=== PATIENT | female | born 1955 | race Caucasian/White ===

== ENCOUNTER 2016-11-12 16:43 | Emergency (ER) | payer MEDICARE, MEDICAID ==
[2016-11-12 17:36] VITALS: BP 142/84
--- NOTE | 2016-11-12 18:11 | EDM.PDOC ---
[id number] Complaint: ITCHING/REDNESS LEFT FOOT TOES Time Seen by Provider: 11/12/16 18:00 Source of Information: Reports: Patient History Limitations: Reports: No Limitations - History of Present Illness INITIAL COMMENTS - FREE TEXT/NARRATIVE: 61-year-old female with a reddened swollen left distal foot around the toes with a few small blisters. It developed rapidly over the course of 12 hours and is extremely itchy. No fever or chills, no red streaks. Onset: Sudden (Over the past 2 days) Location: Reports: Lower Extremity, Left Severity: Mild Associated Symptoms: Reports: No Other Symptoms left toes Pain Score (Numeric/FACES): 2 - Related Data Allergies Allergy/AdvReac Type Severity Reaction Status Date / Time clindamycin Allergy Rash Verified 11/12/16 17:24 codeine Allergy Rash Verified 11/12/16 17:24 fentanyl Allergy Itching Verified 11/12/16 17:24 hydrocodone Allergy Itching Verified 11/12/16 17:24 hydromorphone Allergy Rash Verified 11/12/16 17:24 levonorgestrel Allergy Itching Verified 11/12/16 17:24 methadone Allergy Itching Verified 11/12/16 17:24 morphine Allergy Itching Verified 11/12/16 17:24 oxycodone Allergy Itching Verified 11/12/16 17:24 tramadol HCl [From Ultram] Allergy Itching Verified 11/12/16 17:24 Home Meds: Home Meds DULoxetine HCl [Cymbalta] 120 mg PO DAILY 05/26/14 [History] Simvastatin [Zocor] 40 mg PO BEDTIME 05/26/14 [History] Cholecalciferol (Vitamin D3) [Vitamin D3] 2,000 units PO DAILY 07/09/14 [History ] Cyclobenzaprine [Flexeril] 10 mg PO TID PRN 11/12/16 [History] Past Medical History Cardiovascular History: Reports: High Cholesterol, Other (See Below) Other Cardiovascular History: mitral valve prolapse Respiratory History: Reports: COPD Gastrointestinal History: Reports: Colon Polyp, Hiatal Hernia, Irritable Bowel Syndrome Musculoskeletal History: Reports: Back Pain, Chronic, Fibromyalgia Neurological History: Reports: Headaches, Chronic Psychiatric History: Reports: Anxiety, Depression, Panic Attack - Infectious Disease History Infectious Disease History: Reports: Chicken Pox, Measles, Mumps - Past Surgical History HEENT Surgical History: Reports: Oral Surgery, Tonsillectomy Cardiovascular Surgical History: Reports: None Respiratory Surgical History: Reports: None GI Surgical History: Reports: Appendectomy, Cholecystectomy, Colonoscopy, Hernia , Inguinal, Kristin Fundoplication, Polypectomy Female Surgical History: Reports: Section, D&C, Hysterectomy Musculoskeletal Surgical History: Reports: Carpal Tunnel Social & Family History - Tobacco Use Smoking Status *Q: Current Every Day Smoker Years of Tobacco use: 40 Packs/Tins Daily: 1 Used Tobacco, but Quit: No Second Hand Smoke Exposure: No - Alcohol Use Days Per Week of Alcohol Use: 7 Number of Drinks Per Day: 1 Total Drinks Per Week: 7 - Recreational Drug Use Recreational Drug Use: No Review of Systems - Review of Systems Review Of Systems: See Below Constitutional: Denies: Fever Respiratory: Reports: No Symptoms Cardiovascular: Reports: No Symptoms Genitourinary: Reports: No Symptoms Musculoskeletal: Reports: No Symptoms Skin: Reports: Erythema, Other (Tiny blisters on several toes) Psychiatric: Reports: No Symptoms Trauma Exam - Physical Exam Exam: See Below Exam Limited By: No Limitations General Appearance: Reports: Alert, No Apparent Distress Respiratory Exam: Reports: No Respiratory Distress Extremities: Other (Exam is otherwise limited to the feet. She has erythema, slight edema and a few superficial blisters formed over the toes of the left foot. A small amount of onychomycosis is present. The right foot has no inflammatory change.) Course - Vital Signs Last Recorded V/S: Last Vital Signs Temp 96.7 F 11/12/16 17:34 Pulse 84 11/12/16 17:34 Resp 16 11/12/16 17:34 BP 142/84 H 11/12/16 17:34 Pulse Ox 96 11/12/16 17:34 - Re-Assessments/Exams Free Text/Narrative Re-Assessment/Exam: 11/12/16 18:08 This likely is a contact dermatitis to something that was in her shoe. It's unlikely infection because of the lack of fever, warmth, and the reaction looks acute and inflammatory rather than infectious. She'll be placed on 50 mg of prednisone daily for up to 6 days, can use topical hydrocortisone and recheck with her primary provider in 2-3 days if not improving. Departure - Departure Time of Disposition: 18:27 Disposition: Home, Self-Care 01 Condition: good Clinical Impression: Contact dermatitis Qualifiers: Contact dermatitis type: allergic - Discharge Information Instructions: Contact Dermatitis, [id number] Referrals: Perry Mir Sr, MD [Primary Care Provider] - Forms: ED Department Discharge Care Plan Goals: Takes 5 pills of prednisone with food daily for the next 3-6 days. Topical hydrocortisone may help and recheck if you develop fever, worsening redness or consider recheck in 3-4 days if not improving.
== END 2016-11-12 18:28 | disposition home or self-care (01) ==
LOC: JP.ED 16:43
DX: L23.9 Allergic contact dermatitis, unspecified cause (principal); E78.00 Pure hypercholesterolemia, unspecified; J44.9 Chronic obstructive pulmonary disease, unspecified; F41.9 Anxiety disorder, unspecified; F32.9 Major depressive disorder, single episode, unspecified; F17.210 Nicotine dependence, cigarettes, uncomplicated; Z98.890 Other specified postprocedural states; Z88.1 Allergy status to other antibiotic agents; Z88.5 Allergy status to narcotic agent; Z88.8 Allergy status to other drugs, medicaments and biological substances; Z79.899 Other long term (current) drug therapy; Z90.49 Acquired absence of other specified parts of digestive tract; Z90.710 Acquired absence of both cervix and uterus
CPT/HCPCS: 99283

== ENCOUNTER 2017-07-26 06:49 | Day surgery (SDC) | payer MEDICARE, MEDICAID ==
[2017-07-26] MEDS ORDERED: fentaNYL 100 MCG/2 ML SDV ONE (07:17)
[2017-07-26] MEDS ORDERED: Propofol 200 MG/20 ML SDV ONE (07:17)
[2017-07-26] MEDS ORDERED: Midazolam 1 MG/ML 2 ML SDV ONE (07:18)
[2017-07-26] MEDS ORDERED: Sodium Chloride 0.9% 1,000 ML IV SCH (08:00)
[2017-07-26] MEDS ORDERED: Ampicillin 2 GM in Sodium Chloride 0.9% 100 ML IV ONE (08:30)
[2017-07-26 09:41] VITALS: BP 102/62
--- NOTE | 2017-07-26 11:41 | PROC ---
DATE OF PROCEDURE: 07/26/2017 INDICATION: Jacquelyn is a 61-year-old female who comes in for colonoscopy because of a pressure type feeling in her rectum area. She is having a hard time passing stools. The risks and benefits were explained to the patient, was taken to the OR. PROCEDURE IN DETAIL: Anesthesia was given by nurse flight readiness technician. During the procedure, we used 2 mg of Versed, 2 mL of fentanyl, and 200 mg of propofol. The Olympus 180L scope was used. With a gloved finger, the rectum was examined and then the tube was placed into the rectum and advanced under direct vision. At the sigmoid area noted multiple diverticula. We did get to the cecum with minimal difficulty. Upon retraction of the tube, noted no lesions or ulceration. No abnormality until we got to 20 cm, noted a small polyp. This was biopsied. The remainder of the colon was unremarkable. There was no obvious pathology noted at the rectum as well. The tube was removed. The patient tolerated the procedure well. PREOPERATIVE DIAGNOSIS: Pelvic pressure in the rectal area. POSTOPERATIVE DIAGNOSES: 1. Small polyp noted at 20 cm. 2. Multiple diverticula in the sigmoid colon. Routine screening should be done for Jacquelyn depending on the results of the biopsy. Perry Mir MD /[id number]
== END 2017-07-26 10:05 | disposition home or self-care (01) ==
LOC: JP.SDS 06:49
PROVIDERS: ATTEND Internal Medicine
DX: K63.5 Polyp of colon (principal); K57.30 Diverticulosis of large intestine without perforation or abscess without bleeding; J44.9 Chronic obstructive pulmonary disease, unspecified; I73.9 Peripheral vascular disease, unspecified; Z88.1 Allergy status to other antibiotic agents; Z88.8 Allergy status to other drugs, medicaments and biological substances; F17.200 Nicotine dependence, unspecified, uncomplicated
CPT/HCPCS: 45380; 88305; J0290; J2250; J2704; J3010; J7030; J7040

== ENCOUNTER 2017-10-11 10:35 | Day surgery (SDC) | payer MEDICARE, MEDICAID ==
[~2017-10-11 10:35] MED LIST: Ampicillin/Sulbactam Na 3 GM in Sodium Chloride 0.9% 100 ML IV ONE; Dextrose 5%-Lactated Ringers 1,000 ML IV SCH; Glycopyrrolate 0.2 MG/ML 2 ML SDV IVPUSH ONE
[2017-10-11] MEDS ORDERED: Propofol 200 MG/20 ML SDV ONE (12:37)
[2017-10-11] MEDS ORDERED: Midazolam 1 MG/ML 2 ML SDV ONE (12:38)
[2017-10-11] MEDS ORDERED: fentaNYL 100 MCG/2 ML SDV ONE (12:38)
[2017-10-11] MEDS ORDERED: Pantoprazole 40 MG Vial IVPUSH ONE (13:50)
[2017-10-11 14:58] VITALS: BP 110/68
--- NOTE | 2017-10-15 11:16 | OR ---
DATE OF PROCEDURE: 10/11/2017 PREOPERATIVE DIAGNOSIS: Recurrent heartburn status post Kristin fundoplication. POSTOPERATIVE DIAGNOSES: 1. Recurrent heartburn status post Kristin fundoplication associated with intact Kristin without gross inflammation present at esophagogastric junction. 2. Retained gastric bile. 3. Erosive antral gastritis. OPERATIVE PROCEDURES: Esophagogastroduodenoscopy with antral biopsies for CLOtest. ANESTHESIA: IV sedation. INDICATION FOR PROCEDURE: This is a 62-year-old status post Kristin fundoplication approximately 4 years ago. She recently has developed some recurrent heartburn-type symptoms. She is not presently on any antisecretory medication. Plan is to proceed with upper GI endoscopy with biopsies and/or dilation as indicated. Potential risks including bleeding and perforation were discussed, and the patient wishes to proceed. DETAILS OF PROCEDURE: The patient was taken to the operating room and placed in a left lateral decubitus position. IV sedation was administered, after which the upper GI endoscope was passed orally through the length of the esophagus and into the stomach with retroflexion view of the fundus, and thereafter through the pyloric channel and into the proximal duodenum. The visualized hypopharynx, larynx, and upper esophageal sphincter were unremarkable, as was the esophageal body. At the EG junction, there was no gross inflammation per se. The patient did have an intact Kristin fundoplication, which the scope easily traversed. Within the stomach, proximally, there was a fair bit of retained bile, which might be contributing to the patient's symptoms. Otherwise, there were some scattered erosions within a field of moderate gastritis in the antrum. No blood or bleeding was seen. Pyloric channel and duodenum at the junction of the third and fourth portions were unremarkable. At this point, biopsies were obtained from the antrum and sent for CLOtest for H. pylori. Minimal bleeding from the biopsy sites was seen and the procedure then concluded with removal of the scope. The plan will be to give the patient some Protonix IV in the recovery room and then begin Protonix 40 mg orally daily. We will see the patient back on 10/31/2017 to see how symptom control is at that point. Elieser Stevenson MD /[id number]
== END 2017-10-11 14:50 | disposition home or self-care (01) ==
LOC: JP.SDS 10:35
PROVIDERS: ATTEND Surgery
DX: K29.60 Other gastritis without bleeding (principal); K21.9 Gastro-esophageal reflux disease without esophagitis; E66.9 Obesity, unspecified; Z88.1 Allergy status to other antibiotic agents; Z88.8 Allergy status to other drugs, medicaments and biological substances
CPT/HCPCS: 43239; 87081; C9113; J0295; J2250; J2704; J3010; J7030; J7042; J3490

== ENCOUNTER 2021-03-11 06:12 | Day surgery (SDC) | payer MEDICARE, MEDICAID ==
[2021-03-11] MEDS ORDERED: Sodium Chloride 0.9% 1,000 ML IV SCH (06:45)
[2021-03-11] MEDS ORDERED: Propofol 200 MG/20 ML SDV ONE (06:50)
[2021-03-11] MEDS ORDERED: Midazolam 1 MG/ML 2 ML SDV ONE (06:51)
[2021-03-11] MEDS ORDERED: fentaNYL 100 MCG/2 ML SDV ONE (06:51)
[2021-03-11] MEDS ORDERED: Ampicillin 1 GM in Sodium Chloride 0.9% 50 ML IV ONE (07:36)
[2021-03-11 09:48] VITALS: BP 112/70; PULSE 75
--- NOTE | 2021-03-11 11:19 | PROC ---
DATE OF PROCEDURE: SURGEON: Perry Mir MD INDICATIONS: Jacquelyn is a 65-year-old female who has had difficulty swallowing food. She has had esophageal problems in the past as well. The risks and benefits were explained for the procedure and was taken to the OR. PROCEDURE IN DETAIL: Anesthesia was given by nurse boxing inspector. During the procedure, we used 100 mcg of fentanyl, 2 mg of Versed, and 100 mg of propofol. The Olympus 180 scope was used and placed into the pharynx and esophagus without difficulty and advanced under direct vision. We had difficulty getting through the GE junction. I got into the stomach. There were retained food particles but got good observation of the mucosa. The tube was advanced into the first and second part of the duodenum. Upon retraction of the tube, noted no duodenal erythema, no abnormality. The greater and lesser curvature of the stomach was unremarkable, and tube was retroflexed into the fundus, which revealed no abnormality. The Savary dilator guidewire was placed into the scope and into the stomach, and this tube was slowly retracted. The air was withdrawn from the stomach prior to leaving the stomach. The tube was removed. Then, the Savary dilator 60-Comoran was placed over the guidewire, and the esophagus was dilated to 60-Comor[place] without difficulty. The tube was left in place for 1 minute and then retracted. There was no blood noted on the Savary dilator. The Savary dilator was then removed along with the wire. The patient tolerated the procedure well. PREOPERATIVE DIAGNOSIS: Dysphagia. POSTOPERATIVE DIAGNOSES: Esophageal stenosis dilated to 60-Comoran. Perry Mir MD /[id number]
== END 2021-03-11 09:50 | disposition home or self-care (01) ==
LOC: JP.SDS 06:12
PROVIDERS: ATTEND Internal Medicine
DX: K22.2 Esophageal obstruction (principal); J44.9 Chronic obstructive pulmonary disease, unspecified; K21.9 Gastro-esophageal reflux disease without esophagitis; F41.9 Anxiety disorder, unspecified; F32.9 Major depressive disorder, single episode, unspecified; I25.10 Atherosclerotic heart disease of native coronary artery without angina pectoris; Z88.4 Allergy status to anesthetic agent; Z88.8 Allergy status to other drugs, medicaments and biological substances; Z88.5 Allergy status to narcotic agent; Z88.1 Allergy status to other antibiotic agents; Z88.6 Allergy status to analgesic agent
CPT/HCPCS: 43248; J0290; J2250; J2704; J3010; J7030

== ENCOUNTER 2021-04-14 06:14 | Day surgery (SDC) | payer MEDICARE, MEDICAID ==
[2021-04-14] MEDS ORDERED: Sodium Chloride 0.9% 1,000 ML IV SCH (07:00)
[2021-04-14] MEDS ORDERED: Propofol 200 MG/20 ML SDV ONE (07:14)
[2021-04-14] MEDS ORDERED: fentaNYL 100 MCG/2 ML SDV ONE (07:14)
[2021-04-14] MEDS ORDERED: Midazolam 1 MG/ML 2 ML SDV ONE (07:14)
[2021-04-14] MEDS ORDERED: ceFAZolin 2 GM in Premix Bag 1 BAG IV ONE (08:00)
[2021-04-14 09:32] VITALS: BP 107/67; PULSE 67
--- NOTE | 2021-04-14 11:04 | PROC ---
DATE OF PROCEDURE: SURGEON: Perry Mir MD INDICATIONS: Vandana is a 65-year-old female, comes in for a screening colonoscopy. She has a history of polyps in the past. The risks and benefits were explained to the patient and was taken to the OR. PROCEDURE IN DETAIL: Anesthesia was given by the nurse wire mesh gate assembler. During the procedure, we used fentanyl and propofol. PROCEDURE IN DETAIL: The Olympus 180L scope was used. With a gloved finger, the rectum was examined. No abnormality was noted. The tube was placed into the rectum and advanced under direct vision. In the descending colon, noted multiple diverticula, but able to get through to the cecum. Upon retraction of the tube, noted no lesions or ulceration. No abnormality except multiple diverticula was again seen. The tube was removed. The patient tolerated the procedure well. PREOPERATIVE DIAGNOSIS: History of polyps. POSTOPERATIVE DIAGNOSIS: Normal colon from cecum to rectum with a borderline prep with multiple diverticula. Perry Mir MD /[id number]
== END 2021-04-14 09:36 | disposition home or self-care (01) ==
LOC: JP.SDS 06:14
PROVIDERS: ATTEND Internal Medicine
DX: Z12.11 Encounter for screening for malignant neoplasm of colon (principal); K57.30 Diverticulosis of large intestine without perforation or abscess without bleeding; J44.9 Chronic obstructive pulmonary disease, unspecified; K21.9 Gastro-esophageal reflux disease without esophagitis; F41.9 Anxiety disorder, unspecified; Z87.891 Personal history of nicotine dependence; Z86.010 Personal history of colon polyps
CPT/HCPCS: G0105; J0690; J2250; J2704; J3010; J7030

== ENCOUNTER 2024-06-12 06:08 | Day surgery (SDC) | payer MEDICARE, MEDICAID ==
[2024-06-12] MEDS ORDERED: Propofol 200 MG/20 ML SDV ONE ×2 (07:11→07:23)
[2024-06-12] MEDS: Lactated Ringers 1,000 ML IV SCH (07:16)
[2024-06-12 08:33] VITALS: BP 136/67; PULSE 63
== END 2024-06-12 08:50 ==
LOC: JP.SDS 06:08
PROVIDERS: ATTEND Internal Medicine
DX: R10.9 Unspecified abdominal pain (principal); R13.10 Dysphagia, unspecified; J44.9 Chronic obstructive pulmonary disease, unspecified; E11.9 Type 2 diabetes mellitus without complications; E78.5 Hyperlipidemia, unspecified; K21.9 Gastro-esophageal reflux disease without esophagitis; F31.9 Bipolar disorder, unspecified; I25.10 Atherosclerotic heart disease of native coronary artery without angina pectoris; Z88.8 Allergy status to other drugs, medicaments and biological substances
CPT/HCPCS: 00731-QZ; 88305; J2704; J7120

== ENCOUNTER 2025-01-02 16:05 | Emergency (ER) | payer MEDICARE ==
[2025-01-02 16:36] VITALS: BP 143/80; PULSE 74
[2025-01-02 16:40] LABS: BASOPHILS ABSOLUTE AUTO 0.04 K/uL (0.00-0.10); BASOPHILS PERCENT AUTO 0.6 % (0.1-1.3); EOSINOPHILS ABSOLUTE AUTO 0.19 K/uL (0.00-0.40); EOSINOPHILS PERCENT AUTO 2.7 % (0.0-5.4); IMMATURE GRAN ABSOLUTE AUTO 0.03 K/uL (0.00-0.23); IMMATURE GRAN PERCENT AUTO 0.4 % (0.0-0.7); LYMPHOCYTES ABSOLUTE AUTO 1.81 K/uL (0.8-3.3); LYMPHOCYTES PERCENT AUTO 25.9 % (11.4-47.7); MONOCYTES ABSOLUTE AUTO 0.41 K/uL (0.20-0.90); MONOCYTES PERCENT AUTO 5.9 % (3.3-12.6); NEUTROPHILS ABSOLUTE AUTO 4.52 K/uL (1.0-7.6); NEUTROPHILS PERCENT AUTO 64.5 % (40.0-78.1); PLATELET COUNT,PLT 263 K/uL (130-375); RED BLOOD CELL COUNT 4.71 M/uL (3.77-5.24); WHITE BLOOD CELL COUNT,WBC 7.0 K/uL (3.2-11.0)
[2025-01-02 17:09] LABS: A/G RATIO 0.9 (1.2-2.2); ALANINE AMINOTRANSFERASE,ALT 24 U/L (12-78); ASPARTATE AMNIOTRANSFERASE,AST 16 U/L (15-37); BILIRUBIN TOTAL 0.5 mg/dL (0.2-1.0); BLOOD UREA NITROGEN,BUN 23 mg/dL (7-18); CARBON DIOXIDE,CO2 28 mmol/L (21-32); CHLORIDE,CL 106 mmol/L (100-108); CREATININE 1.3 mg/dL (0.6-1.0); ESTIMATED GFR 45 mL/min (>60); GLUCOSE RANDOM 124 mg/dL (74-106); POTASSIUM,K 3.8 mmol/L (3.6-5.2); PRO B-TYPE NATRIUR PEPT,BNPPRO 189 pg/mL (5-125); PROTEIN TOTAL,TP 6.9 g/dL (6.4-8.2); SODIUM,NA 142 mmol/L (140-148)
== END 2025-01-02 18:16 | disposition home or self-care (01) ==
LOC: JP.ED 16:05
DX: R07.89 Other chest pain (principal); I25.10 Atherosclerotic heart disease of native coronary artery without angina pectoris; I10 Essential (primary) hypertension; E78.00 Pure hypercholesterolemia, unspecified; J44.9 Chronic obstructive pulmonary disease, unspecified; K21.9 Gastro-esophageal reflux disease without esophagitis; E03.9 Hypothyroidism, unspecified; R06.9 Unspecified abnormalities of breathing; Z86.16 Personal history of COVID-19; Z90.49 Acquired absence of other specified parts of digestive tract; Z90.710 Acquired absence of both cervix and uterus; Z88.5 Allergy status to narcotic agent; Z88.1 Allergy status to other antibiotic agents; Z88.8 Allergy status to other drugs, medicaments and biological substances; Z79.890 Hormone replacement therapy; Z79.899 Other long term (current) drug therapy
CPT/HCPCS: 36415; 71045; 80053; 83880; 84484; 85025; 93005; 94640; 99285; A9270